=== PATIENT | male | born 1980 | race African-American/Black ===

== ENCOUNTER 2021-02-23 09:07 | Day surgery (SDC) | payer OTHER ==
[~2021-02-23 09:07] MED LIST: EPINEPHrine 1 MG/ML AMP ONE; ceFAZolin 2 GM/50 ML 2 GM/50 ML BAG IV ONE
[2021-02-23] MEDS ORDERED: fentaNYL 100 MCG/2 ML VIAL ONE (09:24)
[2021-02-23] MEDS ORDERED: MIDAZOLAM 2 MG/2 ML VIAL ONE (09:25)
[2021-02-23] MEDS ORDERED: BUPIVACAINE 0.25% PF 30 ML VIAL ONE (09:26)
--- NOTE | 2021-02-23 09:46 | ANESTHESIA ---
Pre-Anesthesia VS, & Labs - Diagnosis left knee cartilage - Procedure left knee arthroscopy, chondroplasty Vital Signs: Temp Pulse Resp BP Pulse Ox 36.4 C L 63 16 154/106 H 100 02/23/21 09:31 02/23/21 09:31 02/23/21 09:31 02/23/21 09:31 02/23/21 09:31 Height: 6 ft 3 in Weight (kg): 111.13 kg Body Mass Index: 30.6 BMI Classification: Obese - NPO >8 hours - Lab Results Lab results reviewed: Yes Home Medications and Allergies Home Medications: Ambulatory Orders Celecoxib [Celebrex] 200 mg PO 01/28/21 Multivitamin 1 each PO 01/28/21 Methow-3/Dha/Epa/Fish Oil [Fish Oil 1,000 mg Softgel] 1 each PO 01/28/21 Celecoxib [Celebrex] 200 mg PO 01/28/21 Multivitamin 1 each PO 01/28/21 Methow-3/Dha/Epa/Fish Oil [Fish Oil 1,000 mg Softgel] 1 each PO 01/28/21 Allergies/Adverse Reactions: Allergies Allergy/AdvReac Type Severity Reaction Status Date / Time Penicillins Allergy Unknown Verified 01/28/21 11:42 Anes History & Medical History - Anesthetic History Anesthesia Complications: reports: No previous complications Family history of Anesthesia Complications: Denies Family history of Malignant Hyperthermia: Denies - Medical History Cardiovascular: reports: None Pulmonary: reports: Sleep apnea, CPAP use Gastrointestinal: reports: None Urinary: reports: None Musculoskeletal: reports: Other Endocrine/Autoimmune: reports: None Skin: reports: None Exam General: Alert, Oriented x3, Cooperative, No acute distress Dental: WNL Mouth Openin Fingerbreadth Neck Mobility: Normal Mallampati classification: II Respiratory: Lungs clear, Normal breath sounds, No respiratory distress, No accessory muscle use Cardiovascular: Regular rate, Normal S1, Normal S2, No murmurs Plan Anesthesia Type: General Consent for Procedure(s) Verified and Reviewed: Yes Code Status: Attempt Resuscitation ASA classification: 2-Mild systemic disease Is this case an emergency?: No
[2021-02-23] MEDS ORDERED: GLYCOPYRROLATE 1 MG/5 ML VIAL ONE (10:19)
[2021-02-23] MEDS ORDERED: BUPIVACAINE 0.25% PF 30 ML VIAL SUBQ ONE (10:27)
[2021-02-23] MEDS ORDERED: HYDROmorphone 1 MG/ML CARPUJECT ONE (10:28)
[2021-02-23] MEDS ORDERED: ONDANSETRON 4 MG/2 ML VIAL IVP PRN (10:53)
[2021-02-23] MEDS ORDERED: oxyCODONE 5 MG TABLET PO PRN (10:53)
[2021-02-23] MEDS ORDERED: LACTATED RINGERS 1,000 ML IV ONE (10:58)
--- NOTE | 2021-02-23 10:59 | OPERATIVE REPORT ---
Operative Report - Other Other Information/Narrative: Date of Surgery: 23 February 2021 Pre-Op Diagnosis: Left knee trochlear cartilage injury. Left knee fat pad syndrome Procedure: Left knee arthroscopic trochlear chondroplasty and fat pad excision Postop Diagnosis: Same Primary Surgeon: Master Vo Secondary Surgeon: None Complications: None Tourniquet Time: 20 minutes EBL: 5 mL Indication For Surgery: 41-year-old male with chronic pain of the anterolateral knee which has not been responsive to steroid injections physical therapy and activity modifications. We discussed treatment options at great length and due to the fact that he is failed all conservative measures I offered him an arthroscopic procedure to diagnose the severity of his cartilage lesion on the trochlea and to excise the fat pad if it was abnormal. The risks, benefits, and alternatives were discussed. Risks include pain, bleeding, infection, damage to nearby structures and cartilage, lack of symptom relief, need for further surgery, DVT, PE, stroke, and . Written consent was obtained. Examination Under Anesthesia: ROM equal to the contralateral side. Stable dial at 30 & 90 degrees. Stable to varus and valgus stressing at 0 & 30 degrees. Normal Sixto. Normal Pivot shift. No mechanical sensation Arthroscopic Findings: Loose bodies -none Synovium -exuberant synovium and fat pad of the anterior medial and anterior lateral knee. The anterior lateral fat pad could easily get caught in the patellofemoral joint. The fat pad was excised Patella cartilage -normal Trochlear cartilage -5 mm x 5 mm partial thickness lesion was seen centrally in the trochlea. It engaged the patella at 90 degrees of flexion. Loose edges were excised Medial femoral condyle cartilage -normal Medial tibial plateau cartilage -normal Medial meniscus -normal Anterior cruciate ligament -normal Posterior cruciate ligament -normal Lateral femoral condyle cartilage -normal Lateral tibial plateau cartilage -5 mm x 8 mm wide grade 2 cartilage lesion with stable borders not requiring any chondroplasty Lateral meniscus -normal Procedure in Detail: The patient was met in the pre-operative hold area on the day of the procedure. The operative extremity was signed and questions were answered. The patient was brought to the operating room and a general anesthetic was administered. Supine position was used and bony prominences were padded. An examination under anesthesia was performed. Standard prepping and draping was performed. A time out confirmed patient identification, laterality, procedure, allergies, antibiotics, and images. An Esmarch was used to exsanguinate the limb and the tourniquet was elevated to 250 mmHg. A standard diagnostic arthroscopy of the knee was performed through anterolateral and anteromedial portal sites. The anteromedial portal was created under direct visualization after localizing with a spinal needle. The findings can be found above. I then proceeded to use a shaver to excise the loose borders of the trochlear cartilage lesion back to a stable base. Final images of this area were then taken. I then used the shaver to excise the fat pad medially and laterally with a focus on the lateral side. I ensured that the patella had smooth motion without any impingement on the fat pad laterally. I ensured to not destabilize the lateral meniscus. Ligamentum mucosum was also taken down. Final images were taken and all arthroscopic fluid and instruments were removed from the knee. The incisions were closed with buried monocryl sutures. Steri strips were applied. A sterile dressing and compression stocking was placed. The patient was awakened and transferred to recovery in stable condition.
[2021-02-23 13:38] VITALS: BP 121/66
--- NOTE | 2021-02-23 13:44 | ANESTHESIA POST OP EVALUATION ---
Anesthesia Post Eval - Post Anesthesia Eval Vitals: Last Vital Signs Temp 36 C L 02/23/21 12:20 Pulse 50 L 02/23/21 13:38 Resp 15 02/23/21 13:38 BP 121/66 02/23/21 13:38 Pulse Ox 100 02/23/21 13:38 CV Function Including HR & BP: Stable Pain Control: Satisfactory Nausea & Vomiting: Negative Mental Status: Baseline Respiratory Status: Airway Patent Hydration Status: Satisfactory Anesthesia Complications: None
[2021-02-23] MEDS ORDERED: oxyCODONE 5 MG TABLET ONE (13:52)
== END 2021-02-23 09:08 | disposition home or self-care (01) ==
LOC: SDS 09:07
PROVIDERS: ATTEND Orthopaedic Surgery
DX: M23.92 Unspecified internal derangement of left knee (principal); M79.4 Hypertrophy of (infrapatellar) fat pad; E66.9 Obesity, unspecified; Z68.30 Body mass index [BMI] 30.0-30.9, adult; G47.30 Sleep apnea, unspecified
CPT/HCPCS: 29877; A9270; J0690; J1170; J7120